=== PATIENT | female | born 1980 | race African-American/Black ===

== ENCOUNTER 2017-03-18 07:40 | Emergency (ER) | payer SELFPAY ==
[2017-03-18] MEDS ORDERED: metroNIDAZOLE 500 MG TABLET PO ONE (08:00)
[2017-03-18] MEDS ORDERED: AZITHROMYCIN 250 MG TABLET. PO ONE (08:00)
[2017-03-18] MEDS ORDERED: cefTRIAXone IM 250 MG VIAL IM ONE (08:00)
[2017-03-18 08:01] VITALS: BP 123/78
--- NOTE | 2017-03-18 08:03 | PHYS DOC ---
Adult General Chief Complaint Chief Complaint: VAGINAL PROBLEM HPI HPI Patient is a 36 year old female with no significant medical history who presents with vaginal discharge for 4 days. Patient's also complaining of pelvic pain. She states she slept with somebody else other than the boyfriend and is concerned about STDs and would like to be tested and treated. Review of Systems Review of Systems Constitutional: Denies fever or chills [] GI: vaginal discharge and pelvic pain, nausea, vomiting, bloody stools or diarrhea [] : Denies dysuria or hematuria [] Musculoskeletal: Denies back pain or joint pain [] Integument: Denies rash or skin lesions [] Neurologic: Denies headache, focal weakness or sensory changes [] All other systems were reviewed and found to be within normal limits, except as documented in this note. Current Medications Current Medications Current Medications Medications (Trade) Dose Ordered Sig/Govind Start Time Stop Time Status Last Admin Dose Admin Azithromycin (Zithromax) 1,000 mg 1X ONCE 03/18/17 08:00 03/18/17 08:17 DC 03/18/17 08:25 1,000 MG Ceftriaxone Sodium (Rocephin Im) 250 mg 1X ONCE 03/18/17 08:00 03/18/17 08:17 DC 03/18/17 08:25 250 MG Metronidazole (Flagyl) 2,000 mg 1X ONCE 03/18/17 08:00 03/18/17 08:17 DC 03/18/17 08:25 2,000 MG Allergies Allergies Allergies Coded Allergies Type Severity Reaction Last Updated Verified No Known Drug Allergies 03/18/17 No Physical Exam Physical Exam Constitutional: Well developed, well nourished, no acute distress, non-toxic appearance. [] Abdomen: Bowel sounds normal, soft, no tenderness, no masses, no pulsatile masses. [] Pelvic exam External pelvic appears normal. Cervix is closed, mild CMT, no adnexal tenderness, mild amount of thick white discharge in the vaginal vault. Skin: Warm, dry, no erythema, no rash. [] Back: No tenderness, no CVA tenderness. [] Extremities: No tenderness, no cyanosis, no clubbing, ROM intact, no edema. [] Neurologic: Alert and oriented X 3, normal motor function, normal sensory function, no focal deficits noted. [] Psychologic: Affect normal, judgement normal, mood normal. [] Current Patient Data Vital Signs Vital Signs Date Time Temp Pulse Resp B/P (MAP) Pulse Ox O2 Delivery O2 Flow Rate FiO2 03/18/17 08:01 97.7 97 16 123/78 (93) 99 Room Air 97.7 Lab Values Laboratory Tests Test 03/18/17 07:50 Urine Collection Type Unknown Urine Color Anisha Urine Clarity Cloudy Urine pH 7.0 Urine Specific [place] >=1.030 Urine Protein 100 mg/dL (NEG-TRACE) Urine Glucose (UA) Negative mg/dL (NEG) Urine Ketones (Stick) Trace mg/dL (NEG) Urine Blood Negative (NEG) Urine Nitrite Negative (NEG) Urine Bilirubin Small (NEG) Urine Urobilinogen Dipstick 1.0 mg/dL (0.2 mg/dL) Urine Leukocyte Esterase Moderate (NEG) Urine RBC Occ /HPF (0-2) Urine WBC >40 /HPF (0-4) Urine Squamous Epithelial Cells Many /LPF Urine Bacteria Many /HPF (0-FEW) Urine Mucus Marked /LPF Microbiology 03/18/17 Wet Prep - Final, Complete EKG EKG [] Radiology/Procedures Radiology/Procedures [] Course & Med Decision Making Course & Med Decision Making Pertinent Labs and Imaging studies reviewed. (See chart for details) Patient is in the ED with pelvic pain and vaginal discharge, she is concerned about STDs and would like to be tested and treated. Swabs were obtained and sent to lab. She was given Flagyl Rocephin and azithromycin. Wet prep positive for Trichomonas and bacterial vaginosis. Patient was discharged with Flagyl to complete BV treatment and Bactrim for UTI. Emphasis on STD education provided especially the need to use protection. Dragon Disclaimer Dragon Disclaimer This electronic medical record was generated, in whole or in part, using a voice recognition dictation system. Departure Departure Impression: Primary Impression: Trichomonas vaginitis Additional Impressions: Bacterial vaginosis Urinary tract infection Disposition: 01 HOME, SELF-CARE Condition: STABLE Patient Instructions: Bacterial Vaginosis, [id number], Trichomoniasis, Urinary Tract Infection Additional Instructions: You were seen for concern of STD. You tested positive for Trichomonas. Please contact all your sex partners, let them know you had an STD and were treated ask them to seek treatment too. You were also positive for bacterial vaginosis , this is not an STD. We'll put you on Flagyl, ensure you complete it. Do not drink on Flagyl. You also have urinary tract infection, we put you on antibiotics. Ensure you complete them. Contact all your sex partners, let them know you were treated for STDs and ask them to seek treatment too. Scripts Sulfamethoxazole/Trimethoprim (BACTRIM DS TABLET) 1 Each Tablet 1 TAB PO BID, #6 TAB Prov: SARAH TOLENTINO APRN 03/18/17 Metronidazole (FLAGYL) 500 Mg Tablet 1 TAB PO BID, #10 TAB Prov: SARAH TOLENTINO APRN 03/18/17 Problem Qualifiers Additional Impressions: Urinary tract infection Urinary tract infection type: site unspecified Hematuria presence: without hematuria Qualified Codes: N39.0 - Urinary tract infection, site not specified SARAH TOLENTINO APRN Mar 18, 2017 08:03
[2017-03-18 08:11] LABS: BILIRUBIN,URINE SMALL (NEG); GLUCOSE,URINE NEGATIVE (NEG); NITRITE,URINE NEGATIVE (NEG); PROTEIN,URINE 100 mg/dL (NEG-TRACE)
[2017-03-18 08:35] LABS: BACTERIA,URINE MANY /HPF (0-FEW); RBC,URINE OCC /HPF (0-2); SQUAMOUS EPITHELIAL CELL,UR MANY /LPF; WBC,URINE >40 /HPF (0-4)
[2017-03-18] MEDS ORDERED: METR500T PO (08:47)
[2017-03-18] MEDS ORDERED: SULF1TAB24 PO (08:47)
== END 2017-03-18 09:06 | disposition home or self-care (01) ==
LOC: ER 07:40
DX: N39.0 Urinary tract infection, site not specified (principal); A59.01 Trichomonal vulvovaginitis; B96.89 Other specified bacterial agents as the cause of diseases classified elsewhere
CPT/HCPCS: 81001; 81025; 87491; 87591; 96372; 99284; J0696; Q0111; Q0144